=== PATIENT | male | born 1950 | race Caucasian/White ===

== ENCOUNTER 2022-11-19 21:04 | Inpatient (IN) | payer OTHER ==
[~2022-11-19] VITALS: Ht 167.6 cm; Wt 92.5 kg
[2022-11-19] MEDS ORDERED: IV NS 0.9% 1,000 ML BAG IV ONE (22:30)
[2022-11-19 22:42] LABS: BASOPHILS # (AUTO) 0.1 K/uL (0.0-0.2); BASOPHILS % (AUTO) 0.9 % (0.0-2.0); EOSINOPHILS # (AUTO) 0.2 K/uL (0.0-0.7); EOSINOPHILS % (AUTO) 2.1 % (0.0-6.0); HEMATOCRIT 33 % (39-51); HEMOGLOBIN 10.4 g/dL (13.5-17.5); LYMPHOCYTES # (AUTO) 0.7 K/uL (0.8-4.8); LYMPHOCYTES % (AUTO) 9.1 % (20.0-44.0); MEAN CORPUSCULAR HEMOGLOBIN 30 PG (26.0-33.0); MEAN CORPUSCULAR HGB CONC 32 g/dl (31.0-36.0); MEAN CORPUSCULAR VOLUME 94 fL (80-96); MONOCYTES # (AUTO) 0.7 K/uL (0.1-1.30); MONOCYTES % (AUTO) 9.1 % (2.0-12.0); NEUTROPHILS # (AUTO) 6.1 K/uL (1.8-8.9); NEUTROPHILS % (AUTO) 78.8 % (43.0-81.0); PLATELET COUNT (AUTO) 172 K/uL (150-450); RED BLOOD CELL COUNT(AUTO) 3.51 MIL/uL (4.5-6.0); RED CELL DISTRIBUTION WIDTH 14.8 % (11.5-15.0); WHITE BLOOD COUNT (AUTO) 7.8 K/uL (4.3-11.0)
[2022-11-19 22:45] LABS: APPEARANCE,URINE TURBID (CLEAR); BILIRUBIN,URINE 1+ (NEGATIVE); BLOOD, URINE 3+ Ery/uL (NEGATIVE); COLOR,URINE AMBER (YELLOW); KETONES,URINE 1+ mg/dL (NEGATIVE); LEUKOCYTE ESTERASE ,URINE TRACE (NEGATIVE); NITRITE, URINE POSITIVE (NEGATIVE); PH,URINE 6.5 (5.0-8.0); PROTEIN,URINE 3+ mg/dl (NEGATIVE); UGLUCOSE NEGATIVE (NEGATIVE)
[2022-11-19 22:48] LABS: ADD URINE CULTURE YES; BACTERIA,URINE Moderate /HPF (None Seen); RBC,URINE 21-50 /HPF (0-2); SQUAMOUS EPITHELIAL CELL,UR Rare /HPF (None Seen)
[2022-11-19 22:55] LABS: CALCIUM, SERUM 8.6 mg/dL (8.5-10.1); CARBON DIOXIDE 26 mmol/L (21-32); CHLORIDE 110 mmol/L (98-107); CREATININE 1.9 mg/dL (0.6-1.3); GLUCOSE 161 mg/dL (74-106); INR 1.36 (0.91-1.10); PARTIAL THROMBOPLASTIN TIME 35.2 SEC (24.3-34.3); POTASSIUM 4.5 mmol/L (3.5-5.1); SODIUM SERUM 143 mmol/L (136-145); UREA NITROGEN, BLOOD 26 mg/dL (7-18)
[2022-11-19 22:56] LABS: SERUM AMMONIA 37 umol/L (11-32)
[2022-11-19] MEDS ORDERED: CEFTRIAXONE 1GM BAG (ER ONLY) 50 ML IV ONE (23:00)
[2022-11-19] MEDS ORDERED: CEFTRIAXONE 1GM BAG (ER ONLY) 1 GM/50 ML PIGGYBACK IV ONE (23:00)
[2022-11-19 23:01] LABS: ACETAMINOPHEN < 10 ug/ml (10-30); ALANINE AMINOTRANSFERASE 20 U/L (12-78); ALBUMIN 3.2 g/dL (3.4-5.0); ALCOHOL, BLOOD < 3 mg/dL (0-10); ALKALINE PHOSPHATASE 202 U/L (46-116); ASPARTATE AMINOTRANSFERASE 25 U/L (15-37); BILIRUBIN,DIRECT 0.3 mg/dL (0.0-0.2); BILIRUBIN,TOTAL 0.5 mg/dL (0.2-1.0); TOTAL PROTEIN, SERUM 6.3 g/dL (6.4-8.2)
[2022-11-19 23:03] LABS: LACTIC ACID 0.5 mmol/L (0.4-2.0)
[2022-11-19 23:04] LABS: SALICYLATE < 2.3 mg/dL (2.8-20.0)
[2022-11-19 23:09] LABS: AMPHETAMINE, URINE NEGATIVE (NEGATIVE); BARBITURATE, URINE NEGATIVE (NEGATIVE); BENZODIAZEPINE, URINE NEGATIVE (NEGATIVE); CANNABINOID, URINE NEGATIVE (NEGATIVE); COCCAINE, URINE NEGATIVE (NEGATIVE); OPIATE, URINE NEGATIVE (NEGATIVE); PHENCYCLIDINE SCREEN,URINE NEGATIVE (NEGATIVE)
[2022-11-19] MEDS: LACTULOSE 10 G/15 ML UDC (PYXIS) PR ONE (23:54)
[2022-11-19] MEDS ORDERED: LACTULOSE 10 G/15 ML UDC (PYXIS) ONE (23:54)
[2022-11-20] VITALS (64 sets, daily range): BP systolic 69–190; BP diastolic 35–102; TEMP 98–100.5; O2SAT 90–100
[2022-11-20] MEDS: LACTULOSE 10 G/15 ML UDC (PYXIS) PR ONE (00:10)
[2022-11-20] MEDS ORDERED: ONDANSETRON HCL/PF 4 MG/2 ML VIAL IVP PRN (01:00)
[2022-11-20] MEDS ORDERED: Z GUARD REMEDY 4 OZ OINT TP PRN (01:00)
[2022-11-20] MEDS ORDERED: ZOLPIDEM TARTRATE 5 MG TABLET PO PRN (01:00)
[2022-11-20] MEDS ORDERED: MAG HYDROX/AL HYDROX/SIMETH 30 ML UDC PO PRN (01:00)
[2022-11-20] MEDS ORDERED: MAGNESIUM HYDROXIDE 30 ML UDC PO PRN (01:00)
[2022-11-20 02:34] LABS: ABG BASE EXCESS -8.1 mmol/L; ABG OXYGEN SATURATION 93.2 % (92.0-98.5); ABG PCO2 75.6 mmHg (35.0-45.0); ABG PH 7.097 (7.350-7.450); ABG PO2 83.6 mmHg (75.0-100.0); ABG TOTAL HEMOGLOBIN 12.8 G/dL (13.5-18.0); AaDO2 114.7 mmHg; COHb 1.2 % (0.5-1.5); MetHb 0.3 % (0.0-1.5); O2Hb 91.8 % (94.0-97.0); SITE, ABG Right Radial; VENT MODE, BG Simple Mask
[2022-11-20] MEDS ORDERED: PANT40TA49 PO (02:35)
[2022-11-20] MEDS ORDERED: TRAZ-182 PO (02:35)
[2022-11-20] MEDS ORDERED: BUME2TAB7 PO (02:35)
[2022-11-20] MEDS ORDERED: CHOL500052 PO (02:35)
[2022-11-20] MEDS ORDERED: ALBU1.257 IH (02:35)
[2022-11-20] MEDS ORDERED: GABA-532 PO (02:35)
[2022-11-20] MEDS ORDERED: TRIA10PO3 MC (02:35)
[2022-11-20] MEDS ORDERED: LOPE2TAB25 PO (02:35)
[2022-11-20] MEDS ORDERED: PRAM0.253 PO (02:35)
[2022-11-20] MEDS ORDERED: FLUT25PO3 MC (02:35)
[2022-11-20] MEDS ORDERED: MUPI22OI2 TP (02:35)
[2022-11-20] MEDS ORDERED: POTA10TA10 PO (02:35)
[2022-11-20] MEDS ORDERED: AZEL137S7 BNOSTRILS (02:35)
[2022-11-20] MEDS ORDERED: LISI10TA29 PO (02:35)
[2022-11-20] MEDS ORDERED: FERR325T23 PO (02:35)
[2022-11-20] MEDS ORDERED: METO25TA20 PO (02:35)
[2022-11-20] MEDS ORDERED: RIVA10TA PO (02:35)
[2022-11-20] MEDS ORDERED: ALLO100T PO (02:35)
[2022-11-20] MEDS ORDERED: HYDR28.32 TP (02:35)
[2022-11-20] MEDS ORDERED: ATOR20TA PO (02:35)
[2022-11-20] MEDS ORDERED: PROPOFOL 100 ML IV PRN (03:30)
[2022-11-20] MEDS: PROPOFOL 100 ML IV PRN ×5 (04:02→20:38)
[2022-11-20 04:27] LABS: ABG BASE EXCESS -4.5 mmol/L; ABG OXYGEN SATURATION 98.1 % (92.0-98.5); ABG PCO2 47.8 mmHg (35.0-45.0); ABG PH 7.286 (7.350-7.450); ABG PO2 247.8 mmHg (75.0-100.0); ABG TOTAL HEMOGLOBIN 12.7 G/dL (13.5-18.0); AaDO2 417.4 mmHg; COHb 0.2 % (0.5-1.5); MetHb 0.3 % (0.0-1.5); O2Hb 97.6 % (94.0-97.0); SITE, ABG Right Radial; VENT MODE, BG AC 20 500 100% +5
[2022-11-20] MEDS ORDERED: NOREPINEPHRINE 8MG/250ML RTU 250 ML IV ONE (05:27)
[2022-11-20] MEDS ORDERED: NOREPINEPHRINE 8 MG in IV NS 0.9% 242 ML IV PRN (05:30)
[2022-11-20] MEDS: LACTULOSE 10 G/15 ML UDC (PYXIS) PO SCH ×4 (06:29→21:07)
[2022-11-20] MEDS ORDERED: FLUT16SP BNOSTRILS (08:08)
[2022-11-20] MEDS ORDERED: CHOL500062 PO (08:08)
[2022-11-20] MEDS ORDERED: ACET-2605 PO (08:08)
[2022-11-20] MEDS ORDERED: METO50TA16 PO (08:08)
[2022-11-20] MEDS ORDERED: BLOO-668 IN (08:08)
[2022-11-20] MEDS ORDERED: ALBU8.5H8 IH (08:08)
[2022-11-20] MEDS ORDERED: GABA600T12 PO (08:08)
[2022-11-20] MEDS ORDERED: PRAM1TAB3 PO (08:08)
[2022-11-20] MEDS ORDERED: VIT1CAPS44 PO (08:08)
[2022-11-20] MEDS ORDERED: POTA15TA PO (08:08)
[2022-11-20] MEDS ORDERED: TRIA80CR12 TP (08:08)
[2022-11-20] MEDS: CEFTRIAXONE 2 G in IV NS 0.9% 100 ML IV SCH (08:27)
[2022-11-20] MEDS ORDERED: CEFTRIAXONE 1 G in IV D5W 50 ML IV SCH (09:00)
[2022-11-20 09:10] LABS: ABG BASE EXCESS -3.2 mmol/L; ABG OXYGEN SATURATION 95.5 % (92.0-98.5); ABG PCO2 38.7 mmHg (35.0-45.0); ABG PH 7.368 (7.350-7.450); ABG TOTAL HEMOGLOBIN 11.3 G/dL (13.5-18.0); AaDO2 157.7 mmHg; COHb 0.5 % (0.5-1.5); MetHb 0.3 % (0.0-1.5); O2Hb 94.7 % (94.0-97.0); PEEP,BG 5 cm H2O; SITE, ABG Right Radial; VT, ABG 500 mL
[2022-11-20 09:23] LABS: EOSINOPHIL,URINE None Seen
[2022-11-20 09:31] LABS: APPEARANCE,URINE TURBID (CLEAR); COLOR,URINE AMBER (YELLOW); LEUKOCYTE ESTERASE ,URINE TRACE (NEGATIVE); NITRITE, URINE NEGATIVE (NEGATIVE); UGLUCOSE NEGATIVE (NEGATIVE); UROBILINOGEN,URINE 0.2 EU/dL (0.2)
[2022-11-20 09:32] LABS: BILIRUBIN,URINE NEGATIVE (NEGATIVE); BLOOD, URINE 3+ Ery/uL (NEGATIVE); KETONES,URINE NEGATIVE (NEGATIVE); PROTEIN,URINE NEGATIVE (NEGATIVE)
[2022-11-20 09:33] LABS: ADD URINE CULTURE NO; BACTERIA,URINE Rare /HPF (None Seen); PH,URINE 7.5 (5.0-8.0); RBC,URINE 21-50 /HPF (0-2); SQUAMOUS EPITHELIAL CELL,UR Few /HPF (None Seen)
[2022-11-20 09:46] LABS: CREATININE, URINE 159.5 MG/DL (30.0-125.0); URINE TOTAL PROTEIN 179.7 mg/dL (0-11.9)
[2022-11-20] MEDS ORDERED: ROCURONIUM BROMIDE 50 MG/5 ML IV ONE (11:15)
[2022-11-20] MEDS ORDERED: ETOMIDATE 2 MG/ML VIAL IV ONE (11:15)
[2022-11-20] MEDS ORDERED: BUMETANIDE INJ 6 MG in IV NS 0.9% 36 ML IV ONE (14:00)
[2022-11-20] MEDS: RIVAROXABAN 10 MG TABLET NG SCH (16:39)
[2022-11-20] MEDS: ACETAMINOPHEN 325 MG TABLET PO PRN (19:54)
[2022-11-20] MEDS: METOPROLOL TARTRATE 50 MG TABLET NG SCH (21:00)
[2022-11-20] MEDS: ATORVASTATIN 10 MG TABLET NG SCH (21:06)
[2022-11-20] MEDS: GABAPENTIN 300 MG CAPSULE NG SCH (21:07)
[2022-11-20] MEDS ORDERED: PRAMIPEXOLE DI-HCL 0.25 MG TABLET PO SCH (22:00)
[2022-11-20] MEDS: PRAMIPEXOLE DI-HCL 0.25 MG TABLET PO SCH (22:17)
[2022-11-21] VITALS (24 sets, daily range): BP systolic 110–147; BP diastolic 59–79; TEMP 97.3–98.8; O2SAT 95–100
[2022-11-21] MEDS: PROPOFOL 100 ML IV PRN ×6 (00:38→20:24)
[2022-11-21] MEDS: LACTULOSE 10 G/15 ML UDC (PYXIS) PO SCH ×4 (02:54→22:27)
[2022-11-21 04:38] LABS: BASOPHILS # (AUTO) 0.1 K/uL (0.0-0.2); BASOPHILS % (AUTO) 1.2 % (0.0-2.0); EOSINOPHILS # (AUTO) 0.2 K/uL (0.0-0.7); EOSINOPHILS % (AUTO) 2.4 % (0.0-6.0); HEMATOCRIT 33 % (39-51); HEMOGLOBIN 10.5 g/dL (13.5-17.5); LYMPHOCYTES # (AUTO) 0.7 K/uL (0.8-4.8); MEAN CORPUSCULAR HEMOGLOBIN 29 PG (26.0-33.0); MEAN CORPUSCULAR HGB CONC 32 g/dl (31.0-36.0); MEAN CORPUSCULAR VOLUME 91 fL (80-96); MONOCYTES # (AUTO) 0.6 K/uL (0.1-1.30); MONOCYTES % (AUTO) 8.6 % (2.0-12.0); NEUTROPHILS % (AUTO) 76.8 % (43.0-81.0); PLATELET COUNT (AUTO) 156 K/uL (150-450); RED BLOOD CELL COUNT(AUTO) 3.63 MIL/uL (4.5-6.0); WHITE BLOOD COUNT (AUTO) 6.6 K/uL (4.3-11.0)
[2022-11-21 05:17] LABS: ALBUMIN 2.7 g/dL (3.4-5.0); BILIRUBIN,TOTAL 0.4 mg/dL (0.2-1.0); CALCIUM, SERUM 8.3 mg/dL (8.5-10.1); CREATININE 1.7 mg/dL (0.6-1.3); MAGNESIUM 1.7 mg/dL (1.8-2.4); PHOSPHORUS 3.2 mg/dL (2.5-4.9); POTASSIUM 2.9 mmol/L (3.5-5.1); TOTAL PROTEIN, SERUM 5.5 g/dL (6.4-8.2)
[2022-11-21] MEDS: POTASSIUM CL. PREMIX PERIPHER. 50 ML IV SCH ×5 (08:16→12:37)
[2022-11-21] MEDS: IV NS 0.9% 250 ML IV PRN (08:16)
[2022-11-21] MEDS ORDERED: Magnesium 1GM/D5W 100ML PREMIX 100 ML IV SCH (09:00)
[2022-11-21] MEDS: CEFTRIAXONE 2 G in IV NS 0.9% 100 ML IV SCH (09:15)
[2022-11-21] MEDS: LISINOPRIL (10MG) 10 MG TABLET NG SCH (09:18)
[2022-11-21] MEDS: METOPROLOL TARTRATE 50 MG TABLET NG SCH ×2 (09:18→22:40)
[2022-11-21] MEDS: RIVAROXABAN 10 MG TABLET NG SCH (17:42)
[2022-11-21] MEDS: ATORVASTATIN 10 MG TABLET NG SCH (22:22)
[2022-11-21] MEDS: GABAPENTIN 300 MG CAPSULE NG SCH (22:22)
[2022-11-21] MEDS: PRAMIPEXOLE DI-HCL 0.25 MG TABLET PO SCH (22:22)
[2022-11-22] VITALS (24 sets, daily range): BP systolic 94–137; BP diastolic 50–81; TEMP 97.9–98.4; O2SAT 92–100
[2022-11-22] MEDS: PROPOFOL 100 ML IV PRN ×3 (00:22→07:57)
[2022-11-22] MEDS: LACTULOSE 10 G/15 ML UDC (PYXIS) PO SCH ×4 (03:14→21:17)
[2022-11-22 04:46] LABS: BASOPHILS # (AUTO) 0.1 K/uL (0.0-0.2); BASOPHILS % (AUTO) 0.9 % (0.0-2.0); EOSINOPHILS # (AUTO) 0.2 K/uL (0.0-0.7); EOSINOPHILS % (AUTO) 2.5 % (0.0-6.0); HEMATOCRIT 34 % (39-51); HEMOGLOBIN 10.9 g/dL (13.5-17.5); LYMPHOCYTES # (AUTO) 0.6 K/uL (0.8-4.8); LYMPHOCYTES % (AUTO) 8.9 % (20.0-44.0); MEAN CORPUSCULAR HEMOGLOBIN 29 PG (26.0-33.0); MEAN CORPUSCULAR HGB CONC 32 g/dl (31.0-36.0); MEAN CORPUSCULAR VOLUME 91 fL (80-96); MONOCYTES # (AUTO) 0.4 K/uL (0.1-1.30); MONOCYTES % (AUTO) 6.4 % (2.0-12.0); NEUTROPHILS # (AUTO) 5.5 K/uL (1.8-8.9); NEUTROPHILS % (AUTO) 81.3 % (43.0-81.0); PLATELET COUNT (AUTO) 168 K/uL (150-450); RED BLOOD CELL COUNT(AUTO) 3.73 MIL/uL (4.5-6.0); RED CELL DISTRIBUTION WIDTH 15.1 % (11.5-15.0); WHITE BLOOD COUNT (AUTO) 6.7 K/uL (4.3-11.0)
[2022-11-22 05:02] LABS: CALCIUM, SERUM 8.3 mg/dL (8.5-10.1); CREATININE 1.4 mg/dL (0.6-1.3); PHOSPHORUS 3.7 mg/dL (2.5-4.9)
[2022-11-22 05:20] LABS: POTASSIUM 2.5 mmol/L (3.5-5.1)
[2022-11-22] MEDS: POTASSIUM CL. PREMIX PERIPHER. 50 ML IV SCH ×6 (05:40→12:13)
[2022-11-22] MEDS: IV NS 0.9% 250 ML IV PRN ×2 (05:48→05:50)
[2022-11-22 08:02] LABS: ABG BASE EXCESS -6.9 mmol/L; ABG OXYGEN SATURATION 95.3 % (92.0-98.5); ABG PCO2 31.2 mmHg (35.0-45.0); ABG PH 7.365 (7.350-7.450); ABG PO2 84.8 mmHg (75.0-100.0); ABG TOTAL HEMOGLOBIN 11.5 G/dL (13.5-18.0); AaDO2 92.4 mmHg; COHb 0.6 % (0.5-1.5); MetHb 0.3 % (0.0-1.5); O2Hb 94.4 % (94.0-97.0); SITE, ABG Right Radial; VENT MODE, BG ac 20 500 +5 30%
[2022-11-22] MEDS: LISINOPRIL (10MG) 10 MG TABLET NG SCH (08:03)
[2022-11-22] MEDS: METOPROLOL TARTRATE 50 MG TABLET NG SCH ×2 (08:04→21:16)
[2022-11-22] MEDS: CEFTRIAXONE 2 G in IV NS 0.9% 100 ML IV SCH (09:07)
[2022-11-22 09:54] LABS: ABG BASE EXCESS -6.9 mmol/L; ABG OXYGEN SATURATION 95.1 % (92.0-98.5); ABG PCO2 31.1 mmHg (35.0-45.0); ABG PH 7.365 (7.350-7.450); ABG PO2 84.7 mmHg (75.0-100.0); ABG TOTAL HEMOGLOBIN 12.1 G/dL (13.5-18.0); AaDO2 92.7 mmHg; COHb 0.3 % (0.5-1.5); MetHb 0.3 % (0.0-1.5); O2Hb 94.5 % (94.0-97.0); SITE, ABG Left Radial; VENT MODE, BG simv 4 ps 10 450 +5 30%
[2022-11-22] MEDS: RIVAROXABAN 10 MG TABLET NG SCH (16:41)
[2022-11-22] MEDS: GABAPENTIN 300 MG CAPSULE NG SCH (21:17)
[2022-11-22] MEDS: ATORVASTATIN 10 MG TABLET NG SCH (21:17)
[2022-11-22] MEDS: PRAMIPEXOLE DI-HCL 0.25 MG TABLET PO SCH (21:17)
[2022-11-23] VITALS (19 sets, daily range): BP systolic 106–140; BP diastolic 45–78; TEMP 98.4–98.7; O2SAT 92–100
[2022-11-23] MEDS: LACTULOSE 10 G/15 ML UDC (PYXIS) PO SCH ×4 (03:12→21:13)
[2022-11-23 03:39] LABS: BASOPHILS % (AUTO) 0.5 % (0.0-2.0); EOSINOPHILS # (AUTO) 0.2 K/uL (0.0-0.7); EOSINOPHILS % (AUTO) 1.9 % (0.0-6.0); HEMATOCRIT 36 % (39-51); HEMOGLOBIN 11.6 g/dL (13.5-17.5); LYMPHOCYTES # (AUTO) 0.6 K/uL (0.8-4.8); LYMPHOCYTES % (AUTO) 6.3 % (20.0-44.0); MEAN CORPUSCULAR HEMOGLOBIN 29 PG (26.0-33.0); MEAN CORPUSCULAR HGB CONC 32 g/dl (31.0-36.0); MEAN CORPUSCULAR VOLUME 91 fL (80-96); MONOCYTES # (AUTO) 0.6 K/uL (0.1-1.30); MONOCYTES % (AUTO) 7.1 % (2.0-12.0); NEUTROPHILS # (AUTO) 7.7 K/uL (1.8-8.9); NEUTROPHILS % (AUTO) 84.2 % (43.0-81.0); PLATELET COUNT (AUTO) 195 K/uL (150-450); RED BLOOD CELL COUNT(AUTO) 3.96 MIL/uL (4.5-6.0); RED CELL DISTRIBUTION WIDTH 15.1 % (11.5-15.0); WHITE BLOOD COUNT (AUTO) 9.2 K/uL (4.3-11.0)
[2022-11-23 03:58] LABS: CALCIUM, SERUM 8.9 mg/dL (8.5-10.1); CREATININE 1.3 mg/dL (0.6-1.3); MAGNESIUM 2.1 mg/dL (1.8-2.4); PHOSPHORUS 4.2 mg/dL (2.5-4.9); POTASSIUM 3.5 mmol/L (3.5-5.1)
[2022-11-23] MEDS: IV NS 0.9% 250 ML IV PRN (06:31)
[2022-11-23 07:07] LABS: PTH, INTACT 98 pg/mL (15-65)
[2022-11-23 08:07] LABS: *SPE A/G RATIO 1.2 (0.7-1.7); *SPE ALBUMIN 2.7 g/dL (2.9-4.4); *SPE ALPHA-1-GLOBULIN 0.2 g/dL (0.0-0.4); *SPE ALPHA-2-GLOBULIN 0.6 g/dL (0.4-1.0); *SPE BETA GLOBULIN 0.8 g/dL (0.7-1.3); *SPE GLOBULIN, TOTAL 2.3 g/dL (2.2-3.9); *SPE M-SPIKE Not Observed g/dL (Not Observed); *SPEGAMMA GLOBULIN 0.6 g/dL (0.4-1.8)
[2022-11-23] MEDS: LISINOPRIL (10MG) 10 MG TABLET NG SCH (08:26)
[2022-11-23] MEDS: CEFTRIAXONE 2 G in IV D5W 100 ML IV SCH (08:26)
[2022-11-23] MEDS: METOPROLOL TARTRATE 50 MG TABLET NG SCH ×2 (08:27→21:11)
[2022-11-23 10:30] LABS: ALBUMIN 2.6 g/dL (3.4-5.0); BILIRUBIN,DIRECT 0.2 mg/dL (0.0-0.2); BILIRUBIN,TOTAL 0.3 mg/dL (0.2-1.0); TOTAL PROTEIN, SERUM 5.8 g/dL (6.4-8.2)
[2022-11-23] MEDS: DOCUSATE SODIUM 100 MG CAPSULE PO SCH ×2 (13:07→17:26)
[2022-11-23] MEDS: RIVAROXABAN 10 MG TABLET NG SCH (17:27)
[2022-11-23] MEDS: GABAPENTIN 300 MG CAPSULE NG SCH (21:11)
[2022-11-23] MEDS: PRAMIPEXOLE DI-HCL 0.25 MG TABLET PO SCH (21:11)
[2022-11-23] MEDS: ATORVASTATIN 10 MG TABLET NG SCH (21:11)
[2022-11-24] VITALS: BP 113/65; TEMP 98.4; O2SAT 92
[2022-11-24] MEDS: LACTULOSE 10 G/15 ML UDC (PYXIS) PO SCH ×2 (03:46→08:59)
[2022-11-24 04:00] VITALS: BP 127/63; TEMP 97.9; O2SAT 92
[2022-11-24 07:05] LABS: BASOPHILS % (AUTO) 0.4 % (0.0-2.0); EOSINOPHILS # (AUTO) 0.2 K/uL (0.0-0.7); EOSINOPHILS % (AUTO) 2.5 % (0.0-6.0); HEMATOCRIT 34 % (39-51); LYMPHOCYTES # (AUTO) 0.7 K/uL (0.8-4.8); LYMPHOCYTES % (AUTO) 8.5 % (20.0-44.0); MEAN CORPUSCULAR HEMOGLOBIN 30 PG (26.0-33.0); MEAN CORPUSCULAR HGB CONC 32 g/dl (31.0-36.0); MEAN CORPUSCULAR VOLUME 93 fL (80-96); MONOCYTES # (AUTO) 0.7 K/uL (0.1-1.30); MONOCYTES % (AUTO) 8.7 % (2.0-12.0); NEUTROPHILS # (AUTO) 6.5 K/uL (1.8-8.9); NEUTROPHILS % (AUTO) 79.9 % (43.0-81.0); PLATELET COUNT (AUTO) 162 K/uL (150-450); RED CELL DISTRIBUTION WIDTH 15.2 % (11.5-15.0); WHITE BLOOD COUNT (AUTO) 8.2 K/uL (4.3-11.0)
[2022-11-24 07:40] LABS: CALCIUM, SERUM 8.9 mg/dL (8.5-10.1); CREATININE 1.3 mg/dL (0.6-1.3); MAGNESIUM 2.4 mg/dL (1.8-2.4); PHOSPHORUS 3.5 mg/dL (2.5-4.9); POTASSIUM 3.9 mmol/L (3.5-5.1)
[2022-11-24 08:00] VITALS: BP 125/64; TEMP 97.7; O2SAT 94
[2022-11-24] MEDS: CEFTRIAXONE 2 G in IV D5W 100 ML IV SCH (08:54)
[2022-11-24] MEDS: DOCUSATE SODIUM 100 MG CAPSULE PO SCH ×2 (08:54→16:58)
[2022-11-24] MEDS: METOPROLOL TARTRATE 50 MG TABLET NG SCH ×2 (08:55→21:33)
[2022-11-24] MEDS: LISINOPRIL (10MG) 10 MG TABLET NG SCH (08:55)
[2022-11-24 11:27] LABS: HEMOGLOBIN 11.6 g/dL (13.5-17.5)
[2022-11-24 12:00] VITALS: BP 126/73; TEMP 98.4; O2SAT 99
[2022-11-24] MEDS: GUAIFENESIN LA 600 MG TABLET.SA PO SCH ×2 (14:54→21:33)
[2022-11-24 16:00] VITALS: BP 116/83; TEMP 98.1; O2SAT 92
[2022-11-24] MEDS: CLOTRIMAZOLE 1% 15 GM TUBE TP SCH (16:58)
[2022-11-24] MEDS: RIVAROXABAN 10 MG TABLET NG SCH (17:02)
[2022-11-24 20:00] VITALS: BP 116/83; TEMP 98.1; O2SAT 99
[2022-11-24] MEDS: ATORVASTATIN 10 MG TABLET NG SCH (21:33)
[2022-11-24] MEDS: GABAPENTIN 300 MG CAPSULE NG SCH (21:33)
[2022-11-24] MEDS: PRAMIPEXOLE DI-HCL 0.25 MG TABLET PO SCH (21:34)
[2022-11-25] VITALS: BP 116/83; TEMP 98.2; O2SAT 99
[2022-11-25 04:00] VITALS: BP 140/72; TEMP 97.8; O2SAT 95
[2022-11-25 08:00] VITALS: BP 146/78; TEMP 98.2; O2SAT 93
[2022-11-25] MEDS: GUAIFENESIN LA 600 MG TABLET.SA PO SCH ×2 (08:46→21:15)
[2022-11-25] MEDS: LISINOPRIL (10MG) 10 MG TABLET NG SCH (08:46)
[2022-11-25] MEDS: DOCUSATE SODIUM 100 MG CAPSULE PO SCH ×2 (08:46→17:55)
[2022-11-25] MEDS: LACTULOSE 10 G/15 ML UDC (PYXIS) PO SCH (08:47)
[2022-11-25] MEDS: METOPROLOL TARTRATE 50 MG TABLET NG SCH ×2 (08:47→21:14)
[2022-11-25] MEDS: CLOTRIMAZOLE 1% 15 GM TUBE TP SCH ×2 (08:48→17:54)
[2022-11-25 09:03] LABS: BASOPHILS # (AUTO) 0.1 K/uL (0.0-0.2); BASOPHILS % (AUTO) 0.8 % (0.0-2.0); EOSINOPHILS # (AUTO) 0.3 K/uL (0.0-0.7); EOSINOPHILS % (AUTO) 3.3 % (0.0-6.0); HEMATOCRIT 35 % (39-51); HEMOGLOBIN 11.2 g/dL (13.5-17.5); LYMPHOCYTES # (AUTO) 0.7 K/uL (0.8-4.8); LYMPHOCYTES % (AUTO) 8.5 % (20.0-44.0); MEAN CORPUSCULAR HEMOGLOBIN 29 PG (26.0-33.0); MEAN CORPUSCULAR HGB CONC 32 g/dl (31.0-36.0); MEAN CORPUSCULAR VOLUME 92 fL (80-96); MONOCYTES # (AUTO) 0.6 K/uL (0.1-1.30); NEUTROPHILS # (AUTO) 6.1 K/uL (1.8-8.9); NEUTROPHILS % (AUTO) 79.4 % (43.0-81.0); PLATELET COUNT (AUTO) 140 K/uL (150-450); RED BLOOD CELL COUNT(AUTO) 3.83 MIL/uL (4.5-6.0); RED CELL DISTRIBUTION WIDTH 14.9 % (11.5-15.0); WHITE BLOOD COUNT (AUTO) 7.7 K/uL (4.3-11.0)
[2022-11-25 09:36] LABS: ALBUMIN 2.9 g/dL (3.4-5.0); BILIRUBIN,TOTAL 0.4 mg/dL (0.2-1.0); CALCIUM, SERUM 8.8 mg/dL (8.5-10.1); CREATININE 1.1 mg/dL (0.6-1.3); TOTAL PROTEIN, SERUM 6.3 g/dL (6.4-8.2)
[2022-11-25 09:38] LABS: INR 1.19 (0.91-1.10); PROTHROMBIN TIME 12.4 SECS (9.2-11.1)
[2022-11-25 12:00] VITALS: BP 140/70; TEMP 98.5; O2SAT 93
[2022-11-25 16:00] VITALS: BP 151/78; TEMP 98.2; O2SAT 93
[2022-11-25] MEDS: RIVAROXABAN 10 MG TABLET NG SCH (17:00)
[2022-11-25] MEDS: ENSURE ENLIVE 237 ML LIQUID (VANILLA) PO SCH (17:54)
[2022-11-25 20:00] VITALS: BP 145/70; TEMP 97.7; O2SAT 95
[2022-11-25] MEDS: ATORVASTATIN 10 MG TABLET NG SCH (21:13)
[2022-11-25] MEDS: PRAMIPEXOLE DI-HCL 0.25 MG TABLET PO SCH (21:13)
[2022-11-25] MEDS: GABAPENTIN 300 MG CAPSULE NG SCH (21:13)
[2022-11-26] VITALS: BP 145/82; TEMP 97.4; O2SAT 92
[2022-11-26 04:00] VITALS: BP 154/76; TEMP 98.2; O2SAT 90
[2022-11-26] MEDS ORDERED: QUETIAPINE FUMARATE 25 MG TABLET PO SCH (07:00)
[2022-11-26 08:00] VITALS: BP 155/76; TEMP 98.3; O2SAT 93
[2022-11-26] MEDS: ENSURE ENLIVE 237 ML LIQUID (VANILLA) PO SCH ×2 (08:40→16:42)
[2022-11-26] MEDS: CLOTRIMAZOLE 1% 15 GM TUBE TP SCH ×2 (08:41→16:42)
[2022-11-26] MEDS: LACTULOSE 10 G/15 ML UDC (PYXIS) PO SCH (09:16)
[2022-11-26] MEDS: GUAIFENESIN LA 600 MG TABLET.SA PO SCH ×2 (09:16→21:27)
[2022-11-26] MEDS: METOPROLOL TARTRATE 50 MG TABLET NG SCH ×2 (09:17→21:27)
[2022-11-26] MEDS: LISINOPRIL (10MG) 10 MG TABLET NG SCH (09:18)
[2022-11-26] MEDS: DOCUSATE SODIUM 100 MG CAPSULE PO SCH ×2 (09:18→16:42)
[2022-11-26 12:00] VITALS: BP 148/80; TEMP 98.2; O2SAT 93
[2022-11-26 16:00] VITALS: BP 158/80; TEMP 98.2; O2SAT 93
[2022-11-26] MEDS: RIVAROXABAN 10 MG TABLET NG SCH (16:41)
[2022-11-26 20:00] VITALS: BP 154/75; TEMP 97.9; O2SAT 96
[2022-11-26] MEDS ORDERED: QUETIAPINE FUMARATE 25 MG TABLET PO ONE (21:00)
[2022-11-26] MEDS: GABAPENTIN 300 MG CAPSULE NG SCH (21:26)
[2022-11-26] MEDS: ATORVASTATIN 10 MG TABLET NG SCH (21:27)
[2022-11-26] MEDS: PRAMIPEXOLE DI-HCL 0.25 MG TABLET PO SCH (21:27)
[2022-11-27] VITALS (9 sets, daily range): BP systolic 142–158; BP diastolic 75–87; TEMP 97.8–98.4; O2SAT 94–96
[2022-11-27] MEDS: CLOTRIMAZOLE 1% 15 GM TUBE TP SCH ×2 (08:37→17:21)
[2022-11-27] MEDS: ENSURE ENLIVE 237 ML LIQUID (VANILLA) PO SCH ×2 (08:37→17:21)
[2022-11-27] MEDS: DOCUSATE SODIUM 100 MG CAPSULE PO SCH ×2 (08:56→17:30)
[2022-11-27] MEDS: GUAIFENESIN LA 600 MG TABLET.SA PO SCH ×2 (08:56→21:45)
[2022-11-27] MEDS: LACTULOSE 10 G/15 ML UDC (PYXIS) PO SCH (08:56)
[2022-11-27] MEDS: LISINOPRIL (10MG) 10 MG TABLET NG SCH (08:57)
[2022-11-27] MEDS: METOPROLOL TARTRATE 50 MG TABLET NG SCH ×2 (09:00→21:46)
[2022-11-27] MEDS: IPRATROPIUM NEB FS 0.5 MG/2.5 ML AMPUL.NEB NEB SCH ×3 (11:00→19:54)
[2022-11-27 12:37] LABS: CALCIUM, SERUM 8.8 mg/dL (8.5-10.1); CREATININE 0.8 mg/dL (0.6-1.3); POTASSIUM 3.8 mmol/L (3.5-5.1)
[2022-11-27 12:43] LABS: ALBUMIN 2.9 g/dL (3.4-5.0); BILIRUBIN,TOTAL 0.6 mg/dL (0.2-1.0); TOTAL PROTEIN, SERUM 6.3 g/dL (6.4-8.2)
[2022-11-27 12:57] LABS: BASOPHILS # (AUTO) 0.1 K/uL (0.0-0.2); BASOPHILS % (AUTO) 1.1 % (0.0-2.0); EOSINOPHILS # (AUTO) 0.3 K/uL (0.0-0.7); EOSINOPHILS % (AUTO) 3.7 % (0.0-6.0); HEMATOCRIT 35 % (39-51); HEMOGLOBIN 11.4 g/dL (13.5-17.5); LYMPHOCYTES # (AUTO) 0.8 K/uL (0.8-4.8); LYMPHOCYTES % (AUTO) 10.8 % (20.0-44.0); MEAN CORPUSCULAR HEMOGLOBIN 29 PG (26.0-33.0); MEAN CORPUSCULAR HGB CONC 32 g/dl (31.0-36.0); MEAN CORPUSCULAR VOLUME 91 fL (80-96); MONOCYTES # (AUTO) 0.7 K/uL (0.1-1.30); MONOCYTES % (AUTO) 9.2 % (2.0-12.0); NEUTROPHILS # (AUTO) 5.3 K/uL (1.8-8.9); NEUTROPHILS % (AUTO) 75.2 % (43.0-81.0); PLATELET COUNT (AUTO) 148 K/uL (150-450); RED CELL DISTRIBUTION WIDTH 14.4 % (11.5-15.0); WHITE BLOOD COUNT (AUTO) 7.1 K/uL (4.3-11.0)
[2022-11-27] MEDS: RIVAROXABAN 10 MG TABLET NG SCH (17:00)
[2022-11-27 20:31] LABS: HEMOGLOBIN 11.2 g/dL (13.5-17.5)
[2022-11-27] MEDS: PRAMIPEXOLE DI-HCL 0.25 MG TABLET PO SCH (21:45)
[2022-11-27] MEDS: ATORVASTATIN 10 MG TABLET NG SCH (21:45)
[2022-11-27] MEDS: GABAPENTIN 300 MG CAPSULE NG SCH (21:45)
[2022-11-28] VITALS (12 sets, daily range): BP systolic 134–151; BP diastolic 70–83; TEMP 98.1–99.7; O2SAT 94–97
[2022-11-28] MEDS: IPRATROPIUM NEB FS 0.5 MG/2.5 ML AMPUL.NEB NEB SCH ×4 (02:14→20:16)
[2022-11-28 05:50] LABS: BASOPHILS % (AUTO) 0.6 % (0.0-2.0); EOSINOPHILS # (AUTO) 0.2 K/uL (0.0-0.7); EOSINOPHILS % (AUTO) 2.5 % (0.0-6.0); HEMATOCRIT 36 % (39-51); HEMOGLOBIN 11.6 g/dL (13.5-17.5); LYMPHOCYTES # (AUTO) 0.5 K/uL (0.8-4.8); LYMPHOCYTES % (AUTO) 6.6 % (20.0-44.0); MEAN CORPUSCULAR HEMOGLOBIN 29 PG (26.0-33.0); MEAN CORPUSCULAR HGB CONC 32 g/dl (31.0-36.0); MEAN CORPUSCULAR VOLUME 90 fL (80-96); MONOCYTES # (AUTO) 0.8 K/uL (0.1-1.30); MONOCYTES % (AUTO) 9.9 % (2.0-12.0); NEUTROPHILS # (AUTO) 6.6 K/uL (1.8-8.9); NEUTROPHILS % (AUTO) 80.4 % (43.0-81.0); PLATELET COUNT (AUTO) 159 K/uL (150-450); RED BLOOD CELL COUNT(AUTO) 3.99 MIL/uL (4.5-6.0); RED CELL DISTRIBUTION WIDTH 14.9 % (11.5-15.0); WHITE BLOOD COUNT (AUTO) 8.1 K/uL (4.3-11.0)
[2022-11-28 06:05] LABS: CALCIUM, SERUM 9.1 mg/dL (8.5-10.1); CREATININE 1.2 mg/dL (0.6-1.3); POTASSIUM 3.8 mmol/L (3.5-5.1)
[2022-11-28 06:11] LABS: ALBUMIN 2.9 g/dL (3.4-5.0); BILIRUBIN,TOTAL 0.5 mg/dL (0.2-1.0); TOTAL PROTEIN, SERUM 6.4 g/dL (6.4-8.2)
[2022-11-28] MEDS ORDERED: PRAM0.258 PO (07:59)
[2022-11-28] MEDS ORDERED: GUAI600T53 PO (07:59)
[2022-11-28] MEDS: LACTULOSE 10 G/15 ML UDC (PYXIS) PO SCH (09:52)
[2022-11-28] MEDS: DOCUSATE SODIUM 100 MG CAPSULE PO SCH ×2 (09:52→17:15)
[2022-11-28] MEDS: LISINOPRIL (10MG) 10 MG TABLET NG SCH (09:53)
[2022-11-28] MEDS: METOPROLOL TARTRATE 50 MG TABLET NG SCH ×2 (09:53→21:43)
[2022-11-28] MEDS: CLOTRIMAZOLE 1% 15 GM TUBE TP SCH ×2 (09:54→17:19)
[2022-11-28] MEDS: ENSURE ENLIVE 237 ML LIQUID (VANILLA) PO SCH ×2 (09:54→17:15)
[2022-11-28] MEDS: GUAIFENESIN LA 600 MG TABLET.SA PO SCH ×2 (09:54→21:43)
[2022-11-28] MEDS: RIVAROXABAN 10 MG TABLET NG SCH (17:17)
[2022-11-28] MEDS: GABAPENTIN 300 MG CAPSULE NG SCH (21:43)
[2022-11-28] MEDS: PRAMIPEXOLE DI-HCL 0.25 MG TABLET PO SCH (21:43)
[2022-11-28] MEDS: ATORVASTATIN 10 MG TABLET NG SCH (21:43)
[2022-11-29] VITALS (9 sets, daily range): BP systolic 125–145; BP diastolic 67–79; TEMP 98–100.3; O2SAT 93–98
[2022-11-29] MEDS: IPRATROPIUM NEB FS 0.5 MG/2.5 ML AMPUL.NEB NEB SCH ×4 (01:18→19:30)
[2022-11-29] MEDS: ACETAMINOPHEN 325 MG TABLET PO PRN (03:10)
[2022-11-29 06:27] LABS: BASOPHILS # (AUTO) 0.1 K/uL (0.0-0.2); BASOPHILS % (AUTO) 0.8 % (0.0-2.0); EOSINOPHILS # (AUTO) 0.1 K/uL (0.0-0.7); EOSINOPHILS % (AUTO) 2.1 % (0.0-6.0); HEMATOCRIT 34 % (39-51); LYMPHOCYTES # (AUTO) 0.8 K/uL (0.8-4.8); LYMPHOCYTES % (AUTO) 10.4 % (20.0-44.0); MEAN CORPUSCULAR HEMOGLOBIN 29 PG (26.0-33.0); MEAN CORPUSCULAR HGB CONC 33 g/dl (31.0-36.0); MEAN CORPUSCULAR VOLUME 89 fL (80-96); MONOCYTES # (AUTO) 0.7 K/uL (0.1-1.30); MONOCYTES % (AUTO) 9.3 % (2.0-12.0); NEUTROPHILS # (AUTO) 5.6 K/uL (1.8-8.9); NEUTROPHILS % (AUTO) 77.4 % (43.0-81.0); PLATELET COUNT (AUTO) 148 K/uL (150-450); RED BLOOD CELL COUNT(AUTO) 3.78 MIL/uL (4.5-6.0); RED CELL DISTRIBUTION WIDTH 14.5 % (11.5-15.0); WHITE BLOOD COUNT (AUTO) 7.2 K/uL (4.3-11.0)
[2022-11-29 06:40] LABS: CALCIUM, SERUM 8.8 mg/dL (8.5-10.1); CREATININE 1.1 mg/dL (0.6-1.3); POTASSIUM 3.7 mmol/L (3.5-5.1)
[2022-11-29 06:46] LABS: ALBUMIN 2.8 g/dL (3.4-5.0); BILIRUBIN,TOTAL 0.7 mg/dL (0.2-1.0); TOTAL PROTEIN, SERUM 6.2 g/dL (6.4-8.2)
[2022-11-29] MEDS: DOCUSATE SODIUM 100 MG CAPSULE PO SCH ×2 (09:00→17:34)
[2022-11-29] MEDS: LACTULOSE 10 G/15 ML UDC (PYXIS) PO SCH (09:00)
[2022-11-29] MEDS: METOPROLOL TARTRATE 50 MG TABLET NG SCH (09:00)
[2022-11-29] MEDS: GUAIFENESIN LA 600 MG TABLET.SA PO SCH (09:00)
[2022-11-29] MEDS: LISINOPRIL (10MG) 10 MG TABLET NG SCH (09:00)
[2022-11-29] MEDS: CLOTRIMAZOLE 1% 15 GM TUBE TP SCH ×2 (09:29→17:33)
[2022-11-29] MEDS: ENSURE ENLIVE 237 ML LIQUID (VANILLA) PO SCH ×2 (09:29→17:33)
[2022-11-29] MEDS ORDERED: FUROSEMIDE 40 MG/4 ML VIAL IV SCH (10:30)
[2022-11-29 11:08] LABS: ABG BASE EXCESS 2.5 mmol/L; ABG OXYGEN SATURATION 94.8 % (92.0-98.5); ABG PCO2 57.3 mmHg (35.0-45.0); ABG PO2 83.2 mmHg (75.0-100.0); ABG TOTAL HEMOGLOBIN 11.9 G/dL (13.5-18.0); AaDO2 34.3 mmHg; COHb 1.1 % (0.5-1.5); MetHb 0.3 % (0.0-1.5); O2Hb 93.5 % (94.0-97.0); SITE, ABG Right Radial; VENT MODE, BG 2L NC
[2022-11-29] MEDS: RIVAROXABAN 10 MG TABLET NG SCH (17:34)
== END 2022-11-29 19:11 | DRG 208 ==
LOC: ER 21:13 → TELE 11-20 00:41 → MED 11-20 01:45 → ICU 11-20 02:56 → TELE1 11-23 15:31
PROVIDERS: ADMIT Nurse Practitioner Acute Care; ATTEND Internal Medicine
PROC: 5A1945Z Respiratory Ventilation, 24-96 Consecutive Hours (ICD-10-PCS; principal; 2022-11-20)
PROC: 0BH17EZ Insertion of Endotracheal Airway into Trachea, Via Natural or Artificial Opening (ICD-10-PCS; 2022-11-20)
PROC: 02HV33Z Insertion of Infusion Device into Superior Vena Cava, Percutaneous Approach (ICD-10-PCS; 2022-11-20)
PROC: B548ZZA Ultrasonography of Superior Vena Cava, Guidance (ICD-10-PCS; 2022-11-20)
DX: J96.01 Acute respiratory failure with hypoxia (principal); G92.8 Other toxic encephalopathy; N17.0 Acute kidney failure with tubular necrosis; I50.31 Acute diastolic (congestive) heart failure; A41.9 Sepsis, unspecified organism; R65.21 Severe sepsis with septic shock; D68.69 Other thrombophilia; E87.29 Other acidosis; L03.115 Cellulitis of right lower limb; E66.2 Morbid (severe) obesity with alveolar hypoventilation; G93.1 Anoxic brain damage, not elsewhere classified; K80.13 Calculus of gallbladder with acute and chronic cholecystitis with obstruction; J96.02 Acute respiratory failure with hypercapnia; I11.0 Hypertensive heart disease with heart failure; K76.82 Hepatic encephalopathy; D63.8 Anemia in other chronic diseases classified elsewhere; E78.5 Hyperlipidemia, unspecified; J45.909 Unspecified asthma, uncomplicated; Z87.440 Personal history of urinary (tract) infections; E11.9 Type 2 diabetes mellitus without complications; Z68.32 Body mass index [BMI] 32.0-32.9, adult; I48.0 Paroxysmal atrial fibrillation; S81.801A Unspecified open wound, right lower leg, initial encounter; X58.XXXA Exposure to other specified factors, initial encounter; Y93.9 Activity, unspecified; Y92.89 Other specified places as the place of occurrence of the external cause; I35.1 Nonrheumatic aortic (valve) insufficiency; Z79.01 Long term (current) use of anticoagulants; W18.30XA Fall on same level, unspecified, initial encounter; Z95.0 Presence of cardiac pacemaker
CPT/HCPCS: 31720; 36415; 36569; 36600; 70450-TC; 70486-TC; 71045-TC; 72125-TC; 74018; 76700-TC; 78226; 80048-TC; 80053-TC; 80076-TC; 81001; 82140-TC; 82550-TC; 82570-TC; 82803-TC; 82962-TC; 83605-TC; 83690-TC; 83735-TC; 83880; 83970; 84100-TC; 84155; 84165; 84300-TC; 84484-TC; 85025-TC; 85027-TC; 85610-TC; 85730-TC; 87040-TC; 87081-TC; 87086-TC; 93307-TC; 94002-TC; 94003-TC; 94799-TC; 97110-TC; 97112-TC; 97116-TC; 97530-TC; A4223; A9537; G0378; G0480; J0696; J1940; J2405; J3475; J3480; J3490; J7030; J7050; J7060